=== PATIENT | female | born 1950 | race Caucasian/White ===

== ENCOUNTER 2021-09-27 06:49 | Day surgery (SDC) | payer MEDICARE ==
[2021-09-20 15:32] LABS: BASOPHILS # (AUTO) 0.1 X10'3 (0-0.2); BASOPHILS % (AUTO) 1.5 % (0-1); EOSINOPHILS # (AUTO) 0.3 X10'3 (0-0.9); EOSINOPHILS % (AUTO) 4.7 % (0-6); LYMPHOCYTES # (AUTO) 2.4 X10'3 (1.1-4.8); LYMPHOCYTES % (AUTO) 35.7 % (21-51); MEAN CORPUSCULAR HEMOGLOBIN 32.9 PG (27.0-31.0); MEAN CORPUSCULAR HGB CONC 34.8 g/dL (33.0-36.5); MEAN CORPUSCULAR VOLUME 94.4 FL (78-98); MEAN PLATELET VOLUME 8.2 FL (7.4-10.4); MONOCYTES # (AUTO) 0.8 X10'3 (0-0.9); MONOCYTES % (AUTO) 11.5 % (2-12); NEUTROPHILS # (AUTO) 3.2 X10'3 (1.8-7.7); NEUTROPHILS % (AUTO) 46.6 % (42-75); PRE OP HEMATOCRIT 44.3 % (42.0-52.0); PRE OP HEMOGLOBIN 15.4 g/dL (14.0-17.9); PRE OP PLATELET COUNT 322 X10'3 (140-440); RED BLOOD COUNT 4.69 X10'6 (4.70-6.10); RED CELL DISTRIBUTION WIDTH 13.4 % (11.5-14.5)
[2021-09-20 15:45] LABS: ALBUMIN/GLOBULIN RATIO 1.1 (1.1-1.5); ALKALINE PHOSPHATASE 81 IU/L (46-116); BLOOD UREA NITROGEN 25 MG/DL (7-18); BUN/CREATININE RATIO 29.8 (5.4-32.0); CALCIUM 9.6 MG/DL (8.5-10.1); CHLORIDE 101 MMOL/L (99-107); CREATININE 0.84 MG/DL (0.60-1.10); PRE OP ALT 32 U/L (30-65); PRE OP ANION GAP 7 (8-16); PRE OP AST 19 U/L (10-37); PRE OP BILIRUB, TOTAL 0.3 MG/DL (0.0-1.0); PRE OP GLUCOSE 95 MG/DL (70-104); PRE OP POTASSIUM 3.6 MMOL/L (3.4-5.1); PRE OP SODIUM 137 MMOL/L (135-145); TOTAL PROTEIN 7.8 G/DL (6.4-8.2); eGFR 90 ML/MIN
[~2021-09-27] VITALS: Ht 157.5 cm; Wt 68.0 kg
[2021-09-27] VITALS (8 sets, daily range): BP systolic 126–156; BP diastolic 68–72
[~2021-09-27 06:49] MED LIST: clindamycin-Cleocin 900mg/D5W 50 ML IV ONE; diazepam 2mg tablet PO ONE; famotidine 20mg tablet PO ONE; ringers solution, lacted 1,000 ML IV SCH
[2021-09-27] MEDS ORDERED: LIDOcaine 1% (10mg/ml) 2ml vial ONE (07:16)
[2021-09-27] MEDS ORDERED: diazepam 5mg tablet PO ONE (07:45)
[2021-09-27] MEDS ORDERED: BUPIVAcaine/PF 2.5mg/ml (0.25%) 10ml vial ONE (10:41)
[2021-09-27] MEDS ORDERED: fentaNYL/PF 50MCG/1 ML 2ML syringe ONE (10:49)
[2021-09-27] MEDS ORDERED: propofol inj 20 ML IV ONE (11:13)
[2021-09-27] MEDS ORDERED: midazolam 1 mg/ML 2ml injection ONE (11:13)
--- NOTE | 2021-09-27 11:25 | NUR ---
Received from [facility] via [facility] , accompanied by Anesthesiologist REN and report given by Anesthesiolgist. NO CO PAIN. ICE APPLIED TO DRESSING. FINGERS WARM, MOVE WELL. BRISK CAP REFILL. DRESSING IS A SPLINT.
[2021-09-27] MEDS ORDERED: HYDR25TA4 PO (11:26)
[2021-09-27] MEDS ORDERED: hydrALAZINE 20mg/ml inj. IV PRN (11:30)
[2021-09-27] MEDS ORDERED: labetalol 20mg/4ml (5mg/ml) syringe IV PRN (11:30)
[2021-09-27] MEDS ORDERED: proCHLORperazine 10 MG/2 ml inj IV PRN (11:30)
[2021-09-27] MEDS ORDERED: morphine 4 MG/ML inj SYRINge IV PRN (11:30)
[2021-09-27] MEDS ORDERED: morphine 2 MG/ML inj. syringe IV PRN (11:30)
[2021-09-27] MEDS ORDERED: acetaminophen 1,000mg/100ml IV 100 ML IV PRN (11:30)
[2021-09-27] MEDS ORDERED: ringers solution, lacted 1,000 ML IV SCH (11:30)
[2021-09-27] MEDS ORDERED: meperidine/PF 25mg/ml syringe IV PRN ×3 (11:30)
[2021-09-27] MEDS ORDERED: ondansetron/PF 4mg/2ml inj IV PRN (11:30)
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
== END 2021-09-27 12:10 | disposition home or self-care (01) ==
LOC: EDSEX 06:49 → PAS 06:49
PROVIDERS: ATTEND Orthopaedic Surgery Hand Surgery
DX: M65.4 Radial styloid tenosynovitis [de Quervain] (principal); I10 Essential (primary) hypertension; Z20.822 Contact with and (suspected) exposure to COVID-19; Z88.0 Allergy status to penicillin; Z88.8 Allergy status to other drugs, medicaments and biological substances; Z98.890 Other specified postprocedural states; Z79.899 Other long term (current) drug therapy; Z72.89 Other problems related to lifestyle; Z87.891 Personal history of nicotine dependence
CPT/HCPCS: 25000; 36415; 80053; 85025; 93005; J2250; J2704; J3010; J3490; J7030; J7120; U0003; U0005; Z7506; Z7512; A4215